=== PATIENT | male | born 1950 | race Caucasian/White ===

== ENCOUNTER → 2021-05-22 09:15 | Outpatient (CLI) | payer MEDICARE, SELFPAY ==
[2021-05-22 20:05] LABS: Add Manual Diff / Slide Review NO; Basophils Absolute Auto 100 /uL (0-100); Basophils Percent Auto 1.4 % (0-2); Eosinophils Absolute Auto 100 /uL (0-450); Eosinophils Percent Auto 1.3 % (2-4); Hematocrit 44.6 % (41-53); Hemoglobin 14.4 g/dL (13.5-17.5); Lymphocytes Absolute Auto 1500 /uL (1100-4500); Mean Corpuscular HGB Conc 32.2 % (30-36); Mean Corpuscular Hemoglobin 28.3 PG (26-34); Monocytes Absolute Auto 500 /uL (0-900); Monocytes Percent Auto 7.6 % (3-14); Neutrophils Absolute Auto 4300 /uL (1500-7000); Neutrophils Percent Auto 66.7 % (50-75); Platelet Count 296 X10^3/uL (150-400); Red Blood Cell Count 5.06 X10^6/uL (4.5-5.9); Red Cell Distribution Width 14.3 % (11.6-14.8); White Blood Cell Count 6.5 X10^3/uL (4.5-11.0)
[2021-05-22 20:43] LABS: Alanine Aminotransferase 14 IU/L (<50); Albumin 4.3 g/dL (3.5-5.0); Albumin Globulin Ratio 1.6 (1.0-2.8); Alkaline Phosphatase 63 U/L (38-126); Aspartate Aminotransferase 22 IU/L (17-59); Bilirubin Total 0.9 mg/dL (0.2-1.3); Blood Urea Nitrogen 17 mg/dL (9-20); Calcium 9.8 mg/dL (8.4-10.2); Carbon Dioxide 28 mmol/L (22-32); Chloride 103 mmol/L (98-107); Cholesterol 184 mg/dL (140-199); Estimated Glomerular Filt Rate > 60.0 mL/min (>60); Globulin 2.7 g/dL (1.7-4.1); Glucose 90 mg/dL (80-110); HDL Cholesterol 67 mg/dL (40-60); HEMOLYSIS < 15 (0-50); LDL Cholesterol Calculated 101 mg/dL (<100); Potassium 4.2 mmol/L (3.4-5.1); Sodium 139 mmol/L (137-145); Triglycerides 79 mg/dL (35-150)
[2021-05-22 21:10] LABS: Prostate Specific Antigen 1.42 ng/mL (0.10-4.00)
== END ==
PROVIDERS: PCP Family Medicine; Visit Provider Family Medicine
DX: Z00.00 Encounter for general adult medical examination without abnormal findings (principal); Z12.5 Encounter for screening for malignant neoplasm of prostate
CPT/HCPCS: 80053; 80061; 84153; 85025; G0103

== ENCOUNTER → 2025-03-23 10:35 | Outpatient (CLI) | payer MEDICARE, SELFPAY ==
[2025-03-23 19:20] LABS: Add Manual Diff / Slide Review NO; Basophils Absolute Auto 100 /uL (0-100); Basophils Percent Auto 0.9 % (0-2); Eosinophils Absolute Auto 200 /uL (0-450); Eosinophils Percent Auto 2.5 % (2-4); Hematocrit 42.3 % (41-53); Hemoglobin 14.2 g/dL (13.5-17.5); Lymphocytes Absolute Auto 1500 /uL (1100-4500); Lymphocytes Percent Auto 22.5 % (25-40); Mean Corpuscular HGB Conc 33.5 % (30-36); Mean Corpuscular Volume 86.5 fL (80-100); Monocytes Absolute Auto 500 /uL (0-900); Neutrophils Absolute Auto 4500 /uL (1500-7000); Neutrophils Percent Auto 66.1 % (50-75); Platelet Count 311 X10^3/uL (150-400); Red Blood Cell Count 4.89 X10^6/uL (4.5-5.9); Red Cell Distribution Width 14.2 % (11.6-14.8); White Blood Cell Count 6.9 X10^3/uL (4.5-11.0)
[2025-03-23 19:26] LABS: BUN Creatinine Ratio 22.2 (6-22); Blood Urea Nitrogen 18 mg/dL (9-20); Calcium 9.1 mg/dL (8.4-10.2); Carbon Dioxide 28 mmol/L (22-32); Chloride 103 mmol/L (98-107); Cholesterol 189 mg/dL (140-199); Estimated Glomerular Filt Rate > 60 mL/min (>60); Glucose 82 mg/dL (70-99); HDL Cholesterol 55 mg/dL (40-60); HEMOLYSIS < 15 (0-50); LDL Cholesterol Calculated 117 mg/dL (<100); Potassium 4.4 mmol/L (3.4-5.1); Sodium 137 mmol/L (137-145); Triglycerides 85 mg/dL (35-150)
[2025-03-23 19:55] LABS: Prostate Specific Antigen Scrn 2.27 ng/mL (0.1-4.0)
== END ==
PROVIDERS: PCP Family Medicine; Visit Provider Family Medicine
DX: Z13.1 Encounter for screening for diabetes mellitus (principal); Z13.6 Encounter for screening for cardiovascular disorders; M72.0 Palmar fascial fibromatosis [Dupuytren]; Z12.5 Encounter for screening for malignant neoplasm of prostate; M41.9 Scoliosis, unspecified
CPT/HCPCS: 80048; 80061; 85025; G0103

== ENCOUNTER 2025-08-03 07:56 | Day surgery (SDC) | payer MEDICARE, SELFPAY ==
[2025-08-03] MEDS: LACTATED RINGERS 1,000 ML 42 ML IV (08:16)
[2025-08-03 08:24] VITALS: BP 144/80; PULSE 77; RESP 16; TEMP 36.3; O2SAT 99
--- NOTE | 2025-08-03 08:39 | PM.HP.IH.1 ---
History of Present Illness History of Present Illness Date Patient Seen: 08/03/25 Time Patient Seen: 08:39 Chief complaint: Screening Colonoscopy Narrative: Elliott is a 75-year-old man here for a colonoscopy. His last one was over 10 years ago. No family history of colon cancer. No recent changes to his bowel function. [facility] Medical History Facet arthropathy, lumbar Social History Smoking Status: Never smoker Meds Home Medications and Allergies Home Medications ?Medication ?Instructions ?Recorded ?Confirmed ?Type mecobalamin (vitamin B12) 500 mcg 500 mcg PO DAILY 03/09/25 06/16/25 History chewable tablet mv-mn-folic 200 mcg-vit K 15 1 cap PO DAILY 03/09/25 06/16/25 History mcg-lutein 5 mg-zeaxanthin 1 mg capsule (PreserVision AREDS 2 Plus Multivit) meloxicam 15 mg tablet 15 mg PO QAM #30 tabs 06/16/25 06/16/25 Rx Allergies Allergy/AdvReac Type Severity Reaction Status Date / Time No Known Drug Allergies Allergy Verified 08/03/25 08:17 Exam Vital Signs (past 8 hours): - 08/03/25 08:24 Temperature 97.3 F L Pulse Rate 77 Respiratory Rate 16 Blood Pressure 144/80 H Pulse Oximetry 99 Oxygen Delivery Method Room Air Oxygen Delivery Method Room Air Const General: healthy appearing Assessment & Plan Assessment and plan (1) Colon cancer screening: Status: Acute Plan Colonoscopy Time-Based Coding :: [TOTAL MINUTES] spent with patient and on the chart (including review of chart, obtaining history, exam, reviewing outside data, placing orders, documenting exam and treatment plan, and counseling patient) on [DATE]. [employer] Document charge(s): No
--- NOTE | 2025-08-03 09:04 | PM.OP.COLON ---
Operative Date/Time/Diagnoses Date of procedure: 08/03/25 Time of procedure: 09:04 Pre-op diagnosis: Colon cancer screening Post-op diagnosis: same Procedure & Clinicians Study performed: Colonoscopy Same procedure(s) as scheduled: Yes Surgeon: Quintin White Anesthesia Type: MAC +/- Procedure Notes Procedure in detail: Surgeon: Quintin White MD Anesthesia: Emily Kaufman CRNA Procedure: The patient was brought to the endoscopy suite, placed in left lateral decubitus position. The patient was connected to monitoring devices. A time-out was performed. Sedation was administered. Once the patient was adequately sedated, a digital rectal exam was performed and was normal. The scope was then inserted and advanced to the cecum where the appendiceal orifice was identified and photographed. The scope was then slowly withdrawn over greater than 6 minutes. The mucosa was thoroughly inspected. No abnormalities were identified. The scope was retroflexed in the rectum. The scope was straightened and removed. The patient was awakened and brought to recovery. Scope withdrawal time: 6 minutes Sedation time: 11 minutes EBL: 0 Findings: Normal colon Post-procedure Recommendations: Colonoscopy in 10 years Disposition: PACU
[2025-08-03 09:06] VITALS: BP 104/62; PULSE 70; RESP 14; TEMP 36.2; O2SAT 99
[2025-08-03 09:13] VITALS: BP 103/56; PULSE 77; RESP 20; O2SAT 99
[2025-08-03 09:17] VITALS: BP 117/65; PULSE 63; RESP 15; TEMP 36.1; O2SAT 98
== END 2025-08-03 09:33 | disposition home or self-care (01) ==
PROVIDERS: PCP Family Medicine; Referring Provider Family Medicine; Visit Provider Surgery
PROC: 0DJD8ZZ Inspection of Lower Intestinal Tract, Via Natural or Artificial Opening Endoscopic (ICD-10-PCS; CPT 45378; principal; 2025-08-03 09:15)
DX: Z12.11 Encounter for screening for malignant neoplasm of colon (principal)
CPT/HCPCS: G0121; J2704